=== PATIENT | male | born 1965 | race African-American/Black ===

== ENCOUNTER 2017-04-19 14:24 | Observation (INO) ==
[2017-04-19] MEDS ORDERED: ONDANSETRON 4 MG/2 ML VIAL IV STA (16:07)
[2017-04-19] MEDS ORDERED: MORPHINE 2 MG/1 ML SYRINGE IV STA (16:07)
[2017-04-19] MEDS ORDERED: methylPREDNISolone SOD SUC 125 MG/2 ML VIAL IV STA (16:07)
[2017-04-19] MEDS ORDERED: FUROSEMIDE 100 MG/10 ML VIAL IV STA (16:07)
[2017-04-19] MEDS ORDERED: ASPIRIN 325 MG TABLET PO STA (16:07)
[2017-04-19 16:29] LABS: Apearance,Urine CLEAR (Clear); Bilirubin,Urine Negative (Negative); Blood, Urine Negative (Negative); Glucose,Urine (UA) Negative (Negative); Ketones,Urine Negative (Negative); Mucus,Urine Occasional /LPF (Occasional); Nitrite,Urine Negative (Negative); Protein,Urine 100 MG/DL; RBC,Urine <1 /HPF (0-4); Squamous Epithelial Cell,Urine Occasional /HPF (0-10); Urine Color Straw (Yellow); Urine Specific Gravity 1.005 (1.001-1.035); Urine Urobilinogen < 2.0 EU/DL (0.2-1.0); WBC,Urine <1 /HPF (0-6)
[2017-04-19] MEDS ORDERED: FUROSEMIDE 20 MG/2 ML VIAL ONE (16:29)
[2017-04-19] MEDS ORDERED: ONDANSETRON 4 MG/2 ML VIAL ONE (16:29)
[2017-04-19] MEDS ORDERED: MORPHINE 10 MG/1 ML VIAL ONE (16:29)
[2017-04-19] MEDS ORDERED: ASPIRIN 325 MG TABLET ONE (16:29)
[2017-04-19] MEDS ORDERED: ALBUTEROL 2.5 MG/3 ML NEB RESP TX SCH (16:30)
[2017-04-19] MEDS ORDERED: methylPREDNISolone SOD SUC 125 MG/2 ML VIAL ONE (16:30)
[2017-04-19 16:35] LABS: Basophils % 0.2 % (0.0-0.8); Eosinophils # 0.2 10*3/uL (0.0-0.87); Eosinophils % 2.1 % (0.00-10.9); Hematocrit 41.9 VOL% (42.0-52.0); Hemoglobin 13.4 GM/DL (14.0-18.0); Immature Granulocytes % 0.4 %; Immature Granulocytes Absolute 0.03 #; Lymphocytes # 0.8 10*3/uL (1.4-4.0); Lymphocytes % 9.7 % (21.2-54.2); Mean Corpuscular Hemoglobin 28 PG (27-34); Mean Corpuscular Volume 86.6 FL (87-102); Mean Platelet Volume 12.1 FL (9.6-12.0); Monocytes # 0.5 10*3/uL (0.11-0.8); Monocytes % 6.7 % (1.7-12.7); Neutrophils # 6.6 10*3/uL (1.4-7.4); Neutrophils % 80.9 % (38.7-73.9); Platelet Count 253 T/CUMM (130-400); Red Blood Count 4.84 MC/CUMM (3.8-5.5); Red Cell Distribution Width 13.2 % (9.3-17.3); White Blood Count 8.1 T/CUMM (4-12)
[2017-04-19 16:38] LABS: Barbiturates Screen,Urine Negative (Negative); Benzodiazepines Screen,Urine Negative (Negative); Cannabinoid Screen,Urine Negative (Negative); Opiate Screen,Urine Negative (Negative); Phencyclidine Screen,Urine Negative (Negative)
[2017-04-19 16:40] LABS: PT Patient Result 10.5 SECS
[2017-04-19 16:47] LABS: Albumin 3.5 G/DL (3.4-5.0); Bilirubin,Total 0.4 MG/DL (0.2-1.0); Calcium 8.8 MG/DL (8.5-10.1); Osmolality,Calculated 274.7 MOS/KG (273-304); Potassium 3.9 MMOL/L (3.5-5.1); Total Protein 7.3 G/DL (6.4-8.3)
[2017-04-19 16:50] LABS: Troponin I Only 0.091 NG/ML (0.00-0.045)
[2017-04-19] MEDS ORDERED: FUROSEMIDE 40 MG/4 ML VIAL ONE (17:02)
[2017-04-19] MEDS ORDERED: FUROSEMIDE 40 MG/4 ML VIAL IV STA (17:14)
[2017-04-19] MEDS ORDERED: hydrALAZINE 20 MG/1 ML VIAL IV STA (17:27)
[2017-04-19] MEDS ORDERED: ASPIRIN EC 325 MG TABLET PO STA (17:30)
[2017-04-19] MEDS ORDERED: ENOXAPARIN 100 MG/ML SYRINGE SUBCUT STA (17:30)
[2017-04-19] MEDS ORDERED: ENOXAPARIN 120 MG/0.8 ML SYRINGE SUBCUT ONE (17:37)
[2017-04-19] MEDS ORDERED: hydrALAZINE 20 MG/1 ML VIAL ONE (17:37)
[2017-04-19] MEDS ORDERED: LABETALOL 20 MG/4 ML SYRINGE IV ONE (18:00)
[2017-04-19] MEDS ORDERED: ALBUTEROL 2.5 MG/3 ML NEB RESP TX PRN (18:24)
[2017-04-19 18:51] LABS: Risk Ratio 3.4; T4 (Thyroxine) 7.2 UG/DL (4.7-13.3)
[2017-04-19] MEDS ORDERED: INFLUENZA VIRUS VACCINE 0.5 ML SYRINGE IM ONE (21:26)
[2017-04-19] MEDS: CARVEDILOL 12.5 MG TABLET PO SCH (22:20)
[2017-04-19] MEDS: methylPREDNISolone SOD SUC 125 MG/2 ML VIAL IV SCH (22:21)
[2017-04-20] MEDS: methylPREDNISolone SOD SUC 125 MG/2 ML VIAL IV SCH ×4 (04:14→23:55)
[2017-04-20 08:01] LABS: Basophils % 0.1 % (0.0-0.8); Hematocrit 43.7 VOL% (42.0-52.0); Hemoglobin 14.1 GM/DL (14.0-18.0); Immature Granulocytes % 0.7 %; Immature Granulocytes Absolute 0.09 #; Lymphocytes # 0.8 10*3/uL (1.4-4.0); Lymphocytes % 5.6 % (21.2-54.2); Mean Corpuscular HGB Conc 32.3 GM/DL (32-36); Mean Corpuscular Hemoglobin 28 PG (27-34); Mean Platelet Volume 11.3 FL (9.6-12.0); Monocytes # 0.2 10*3/uL (0.11-0.8); Monocytes % 1.2 % (1.7-12.7); Neutrophils # 12.7 10*3/uL (1.4-7.4); Neutrophils % 92.4 % (38.7-73.9); Platelet Count 339 T/CUMM (130-400); Red Blood Count 5.08 MC/CUMM (3.8-5.5); Red Cell Distribution Width 13.2 % (9.3-17.3); White Blood Count 13.7 T/CUMM (4-12)
[2017-04-20 08:22] LABS: Albumin 3.6 G/DL (3.4-5.0); Bilirubin,Total 0.6 MG/DL (0.2-1.0); Calcium 9.1 MG/DL (8.5-10.1); Osmolality,Calculated 273.1 MOS/KG (273-304); Potassium 4.5 MMOL/L (3.5-5.1); Total Protein 7.5 G/DL (6.4-8.3)
[2017-04-20 08:40] LABS: Hypochromasia 2+; Lymphocytes 5 % (20-55); Microcytosis 1+; Platelet Estimate Adequate; Segmented Neutrophils 94 % (50-85); Total Cells Counted 100
[2017-04-20] MEDS: ASPIRIN CHEW 81 MG TABLET PO SCH (09:29)
[2017-04-20] MEDS: CARVEDILOL 12.5 MG TABLET PO SCH ×2 (09:29→21:18)
[2017-04-20] MEDS: amLODIPine 10 MG TABLET PO SCH (09:29)
[2017-04-20] MEDS: FUROSEMIDE 40 MG/4 ML VIAL IV SCH (09:32)
[2017-04-20] MEDS: cefTRIAXone 1,000 MG in SYRINGE 1 EACH IV SCH (10:55)
[2017-04-20] MEDS: ALBUTEROL/IPRATROPIUM 3 ML NEB RESP TX SCH ×2 (13:46→19:53)
[2017-04-20] MEDS ORDERED: DIAZEPAM 5 MG TABLET PO ONE (14:24)
[2017-04-20] MEDS ORDERED: diphenhydrAMINE CAP 50 MG CAPSULE PO ONE (14:24)
[2017-04-20] MEDS ORDERED: LIDOCAINE 1% 20 ML VIAL ONE (14:59)
[2017-04-20] MEDS ORDERED: HEPARIN/NACL 0.9% 2 UNITS/ML 2,000 ML IV ONE (14:59)
[2017-04-20] MEDS ORDERED: NITROGLYCERIN DRIP 50 MG/250 ML BOTTLE IV ONE (14:59)
[2017-04-20] MEDS ORDERED: VERAPAMIL 5 MG/2 ML VIAL ONE (14:59)
[2017-04-20] MEDS ORDERED: fentaNYL 100 MCG/2 ML VIAL ONE (15:09)
[2017-04-20] MEDS ORDERED: MIDAZOLAM 2 MG/2 ML VIAL ONE (15:09)
[2017-04-20] MEDS ORDERED: ENOXAPARIN 60 MG/0.6 ML SYRINGE ONE (15:19)
[2017-04-21 05:21] LABS: Basophils % 0.1 % (0.0-0.8); Hematocrit 44.2 VOL% (42.0-52.0); Hemoglobin 14.1 GM/DL (14.0-18.0); Immature Granulocytes % 0.8 %; Immature Granulocytes Absolute 0.17 #; Lymphocytes # 0.9 10*3/uL (1.4-4.0); Lymphocytes % 4.1 % (21.2-54.2); Mean Corpuscular HGB Conc 31.9 GM/DL (32-36); Mean Corpuscular Hemoglobin 28 PG (27-34); Mean Corpuscular Volume 86.5 FL (87-102); Mean Platelet Volume 11.5 FL (9.6-12.0); Monocytes # 0.7 10*3/uL (0.11-0.8); Platelet Count 362 T/CUMM (130-400); Red Blood Count 5.11 MC/CUMM (3.8-5.5); Red Cell Distribution Width 13.5 % (9.3-17.3); White Blood Count 21.7 T/CUMM (4-12)
[2017-04-21 05:52] LABS: Albumin 3.3 G/DL (3.4-5.0); Bilirubin,Total 0.5 MG/DL (0.2-1.0); Osmolality,Calculated 278.8 MOS/KG (273-304); Potassium 4.5 MMOL/L (3.5-5.1); Total Protein 7.6 G/DL (6.4-8.3)
[2017-04-21] MEDS: methylPREDNISolone SOD SUC 125 MG/2 ML VIAL IV SCH ×2 (06:12→11:14)
[2017-04-21 06:37] LABS: Band Neutrophils 1 % (0-10); Giant Platelets Few; Hypochromasia 1+; Lymphocytes 10 % (20-55); Microcytosis Slight; Platelet Estimate Adequate; Segmented Neutrophils 87 % (50-85); Total Cells Counted 100
[2017-04-21] MEDS: ALBUTEROL/IPRATROPIUM 3 ML NEB RESP TX SCH ×2 (07:10)
[2017-04-21] MEDS ORDERED: ASPIRIN EC 81 MG TABLET PO SCH (09:00)
[2017-04-21] MEDS: CARVEDILOL 12.5 MG TABLET PO SCH (09:42)
[2017-04-21] MEDS: amLODIPine 10 MG TABLET PO SCH (09:42)
[2017-04-21] MEDS: FUROSEMIDE 40 MG/4 ML VIAL IV SCH (09:43)
[2017-04-21] MEDS: ASPIRIN CHEW 81 MG TABLET PO SCH (11:05)
[2017-04-21] MEDS: cefTRIAXone 1,000 MG in SYRINGE 1 EACH IV SCH (11:11)
[2017-04-21] MEDS ORDERED: LOSARTAN 50 MG TABLET PO SCH (12:30)
[2017-04-21 13:09] VITALS: BP 142/77
== END 2017-04-21 15:21 | disposition home or self-care (01) ==
LOC: EDBD → EDUNIT# → N.ED 14:24 → N.EDINP 14:24 → N.TELES 19:07
PROC: CLCCHCL (ICD-10-PCS; 2017-04-20 15:15)